=== PATIENT | female | born 1960 | race Caucasian/White ===

== ENCOUNTER 2017-04-11 07:19 | Emergency (ER) | payer OTHER ==
[~2017-04-11] VITALS: Ht 157.5 cm; Wt 97.7 kg
[2017-04-11 07:27] VITALS: BP 161/81
== END 2017-04-11 08:56 | disposition home or self-care (01) ==
LOC: ED 07:19
DX: M25.562 Pain in left knee (principal); R03.0 Elevated blood-pressure reading, without diagnosis of hypertension
CPT/HCPCS: Q0092

== ENCOUNTER 2018-12-16 19:07 | Emergency (ER) | payer OTHER ==
[~2018-12-16] VITALS: Ht 157.5 cm; Wt 101.2 kg
[2018-12-16 19:30] VITALS: Ht 157.5 cm; Wt 101.2 kg
[2018-12-16 20:47] VITALS: BP 140/88
== END 2018-12-16 20:47 | disposition home or self-care (01) ==
LOC: ED 19:07
DX: R20.2 Paresthesia of skin (principal); E78.00 Pure hypercholesterolemia, unspecified; Z98.890 Other specified postprocedural states; Z90.49 Acquired absence of other specified parts of digestive tract

== ENCOUNTER 2019-06-06 22:26 | Emergency (ER) | payer OTHER ==
[~2019-06-06] VITALS: Ht 160 cm; Wt 97.1 kg
[2019-06-06 22:31] VITALS: BP 161/99; Ht 160 cm; Wt 97.1 kg
== END 2019-06-06 23:54 | disposition home or self-care (01) ==
LOC: ED 22:26
DX: R30.0 Dysuria (principal); N89.8 Other specified noninflammatory disorders of vagina; E78.00 Pure hypercholesterolemia, unspecified; E78.5 Hyperlipidemia, unspecified; Z98.890 Other specified postprocedural states

== ENCOUNTER 2019-11-08 14:44 | Emergency (ER) | payer OTHER ==
[~2019-11-08] VITALS: Ht 165.1 cm; Wt 99.8 kg
[2019-11-08 15:16] VITALS: BP 150/99; Ht 165.1 cm; Wt 99.8 kg
== END 2019-11-08 18:29 | disposition home or self-care (01) ==
LOC: ED 14:44
DX: S89.91XA Unspecified injury of right lower leg, initial encounter (principal); E78.00 Pure hypercholesterolemia, unspecified; M54.5 Low back pain; G89.29 Other chronic pain; W18.30XA Fall on same level, unspecified, initial encounter; Y93.89 Activity, other specified; Y92.89 Other specified places as the place of occurrence of the external cause; Y99.8 Other external cause status
CPT/HCPCS: J1885

== ENCOUNTER 2020-01-17 17:55 | Emergency (ER) | payer OTHER ==
[~2020-01-17] VITALS: Ht 157.5 cm; Wt 99.8 kg
[2020-01-17 18:15] VITALS: BP 150/89; Ht 157.5 cm; Wt 99.8 kg
== END 2020-01-17 18:30 | disposition home or self-care (01) ==
LOC: ED 17:55
DX: J06.9 Acute upper respiratory infection, unspecified (principal); E78.00 Pure hypercholesterolemia, unspecified
CPT/HCPCS: 87804

== ENCOUNTER 2020-02-03 12:48 | Emergency (ER) | payer OTHER ==
[~2020-02-03] VITALS: Ht 157.5 cm; Wt 97.1 kg
[2020-02-03 12:59] VITALS: BP 139/81; Ht 157.5 cm; Wt 97.1 kg
== END 2020-02-03 14:58 | disposition left against medical advice (07) ==
LOC: ED 12:48
DX: Z53.21 Procedure and treatment not carried out due to patient leaving prior to being seen by health care provider (principal)